=== PATIENT | male | born 1955 | race Caucasian/White ===

== ENCOUNTER 2017-08-16 09:03 | Inpatient (IN) | payer BC ==
[2017-08-16 10:26] VITALS: BMI 28.7
--- NOTE | 2017-08-16 12:35 | HP ---
CIWA Score - CIWA Score Nausea/Vomitin Muscle Tremors: 3 Anxiety: 3 Agitation: 3 Paroxysmal Sweats: 2 Orientation: 0-Oriented Tacttile Disturbances: 2-Mild Itch/Numbness/Burn Auditory Disturbances: 2-Mild Harshness/Frighten Visual Disturbances: 1-Very Mild Sensitivity Headache: 2-Mild CIWA-Ar Total Score: 21 Admission ROS BHS - HPI Chief Complaint: I NEED HELP TO STOP DRINKING ALCOHOL Allergies/Adverse Reactions: Allergies Allergy/AdvReac Type Severity Reaction Status Date / Time No Known Allergies Allergy Verified 08/16/17 10:33 History of Present Illness: THIS 62 YEARS OLD MALE WITH ALCOHOL DEPENDENCE,SEEKING DETOX,WITHDRAWAL SYMPTOM, SEEN IN ER AT [facility], LAST DETOX [facility] 07/16 LAST SEIZURE 08/12 SYNCOPE HYPERTENSION,TYPE 2 DM, INSULIN DEPENDENCE PARANOID SCHZIPHRENIA NO SIGNIFICANT PERIOD OF SOBRIETY Exam Limitations: No Limitations - Ebola screening Have you traveled outside of the country in the last 21 days: No (N) Have you had contact with anyone from an Ebola affected area: No Have you been sick,other than usual withdrawal symptoms: No Do you have a fever: No - Review of Systems Constitutional: Loss of Appetite, Malaise, Night Sweats, Changes in sleep, Weakness EENT: reports: Nose Congestion Respiratory: reports: No Symptoms reported Cardiac: reports: No Symptoms Reported GI: reports: Nausea, Vomiting, Abdominal cramping : reports: No Symptoms Reported Musculoskeletal: reports: Back Pain, Muscle Pain Integumentary: reports: Dryness Endocrine: reports: No Symptoms Reported Hematology: reports: No Symptoms Reported Psychiatric: reports: No Sypmtoms Reported, Judgement Intact, Mood/Affect Appropiate, Orientated x3, other (PARANOID SCHIZOPHRENIA) Patient History - Patient Medical History Hx Anemia: No Hx Asthma: No Hx Chronic Obstructive Pulmonary Disease (COPD): No Hx Cancer: No Hx Cardiac Disorders: No Hx Congestive Heart Failure: No Hx Hypertension: Yes (on meds.NON COMPLIANCE) Hx Seizures: No Hx Diabetes: Yes (ON INSULIN,NON COMPLIANCE) Hx Gastrointestinal Disorders: Yes (acid reflux) Hx Liver Disease: No Hx Genitourinary Disorders: No Hx Sexually Transmitted Disorders: No Hx Renal Disease (ESRD): No Hx Thyroid Disease: No Hx Human Immunodeficiency Virus (HIV): No (LAST 2016) Hx Hepatitis C: No Hx Depression: Yes Hx Suicide Attempt: Yes (Pt tried to drink cleaning solution in 08/12.) Hx Bipolar Disorder: No Hx Schizophrenia: Yes (NON COMPLIANCE) Other Medical History: NO SUICIDAL,NO HOMICIDAL - Patient Surgical History Past Surgical History: Yes Other Surgical History: L restorationism basal cell carcinoma in - PPD History Previous Implant?: Yes Documented Results: Negative w/o proof Implanted On Prior [facility] Admission?: No PPD to be Administered?: Yes - Smoking Cessation Smoking history: Current every day smoker Have you smoked in the past 12 months: Yes Aproximately how many cigarettes per day: 20 Hx Chewing Tobacco Use: No Initiated information on smoking cessation: Yes 'Breaking Loose' booklet given: 08/16/17 - Substance & Tx. History Hx Alcohol Use: Yes Hx Substance Use: No Substance Use Type: Alcohol Hx Substance Use Treatment: Yes ([facility] 07/16) - Substances Abused Alcohol Route: Oral Frequency: Daily Amount used: 1-2 pints vodka Age of first use: 19 Date of Last Use: 08/13/17 Family Disease History - Family Disease History Family Disease History: Other: Father (ALCOHOL,), Mother (ALCOHOL, ) Admission Physical Exam S - Vital Signs Vital Signs: Vital Signs - 24 hr 08/16/17 10:24 Temperature 98.0 F Pulse Rate 86 Respiratory 20 Rate Blood Pressure 161/79 - Physical General Appearance: Yes: Moderate Distress, Tremorous, Irritable, Sweating, Anxious, Other (SEBORRHEIC DERMATITIS OF FACE) HEENTM: Yes: Normal ENT Inspection, ESTRADA, Pharynx Normal Respiratory: Yes: Lungs Clear, Normal Breath Sounds, No Respiratory Distress Neck: Yes: Within Normal Limits, Supple, Trachea in good position Breast: Yes: Within Normal Limits Cardiology: Yes: Within Normal Limits, Regular Rhythm, Regular Rate, S1, S2 Abdominal: Yes: Within Normal Limits, Normal Bowel Sounds, Flat, Soft Genitourinary: Yes: Within Normal Limits Back: Yes: Muscle Spasm Musculoskeletal: Yes: Back pain, Muscle Pain Extremities: Yes: Tremors Neurological: Yes: fireperson II-XII NML intact, Fully Oriented, Alert, Motor Strength 5/5 Integumentary: Yes: Dry Lymphatic: Yes: Within Normal Limits - Diagnostic (1) Alcohol dependence with uncomplicated withdrawal Current Visit: Yes Status: Acute (2) Alcohol related seizure Current Visit: Yes Status: Acute (3) Syncope Current Visit: Yes Status: Acute (4) Insulin dependent diabetes mellitus Current Visit: Yes Status: Acute (5) Nicotine dependence Current Visit: Yes Status: Acute (6) Paranoid schizophrenia Current Visit: Yes Status: Acute (7) Essential hypertension Current Visit: Yes Status: Acute Cleared for Admission S - Detox or Rehab [facility] Level of Care: Medically Managed Detox Regimen/Protocol: Librium BHS Breath Alcohol Content Breath Alcohol Content: 0 Urine Drug Screen - Results Drug Screen Negative: No Urine Drug Screen Results: BZO-Benzodiazepines
[2017-08-16] MEDS ORDERED: LOPERAMIDE HCL 2 MG CAPSULE PO PRN (12:57)
[2017-08-16] MEDS ORDERED: IBUPROFEN 400 MG TABLET (FP) PO PRN (12:57)
[2017-08-16] MEDS ORDERED: guaiFENesin/D-METHORPHAN HB 10 ML UNIT-DOSE CUPS PO PRN (12:57)
[2017-08-16] MEDS ORDERED: MAGNESIUM HYDROX 2400MG/30ML ORAL SUSPENSION 30 ML CUP PO PRN (12:57)
[2017-08-16] MEDS ORDERED: hydrOXYzine PAMOATE 25 MG CAPSULE (FP) PO PRN (12:57)
[2017-08-16] MEDS ORDERED: MAG HYDROX/AL HYDROX/SIMETH 30 ML UNIT-DOSE CUP PO PRN (12:57)
[2017-08-16] MEDS ORDERED: ACETAMINOPHEN 325 MG TABLET (FP) PO PRN (12:57)
[2017-08-16] MEDS ORDERED: MAGNESIUM CITRATE 300 ML BOTTLE PO PRN (12:57)
[2017-08-16] MEDS ORDERED: MENTHOL/PHENOL 1 EACH UD MM PRN (12:57)
[2017-08-16] MEDS ORDERED: P-EPHED 60MG/TRIPROLIDI 2.5MG TABLET PO PRN (12:57)
[2017-08-16] MEDS ORDERED: chlordiazePOXIDE HCL 25 MG CAPSULE PO PRN (12:57)
[2017-08-16] MEDS ORDERED: chlordiazePOXIDE HCL 25 MG CAPSULE PO ONE (14:05)
[2017-08-16] MEDS ORDERED: INSULIN (NOVOLOG) ASPART 100 UNITS/ML 10ML VIAL SQ ONE (14:15)
[2017-08-16] MEDS: NICOTINE 21 MG/24 HOURS TOPICAL PATCH TD SCH ×2 (15:11→15:35)
[2017-08-16] MEDS: LISINOPRIL 5 MG TABLET (FP) PO SCH (15:14)
[2017-08-16] MEDS: INSULIN (NOVOLOG) ASPART 100 UNITS/ML 10ML VIAL SQ SCH ×2 (15:30→17:53)
[2017-08-16] MEDS: NICOTINE POLACRILEX 2 MG GUM BUC PRN ×3 (15:32→22:24)
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
[2017-08-16] MEDS: chlordiazePOXIDE HCL 25 MG CAPSULE PO SCH ×2 (17:53→22:20)
[2017-08-16 21:10] LABS: URINE APPEARANCE CLEAR; URINE BILIRUBIN NEGATIVE (NEGATIVE); URINE BLOOD NEGATIVE (NEGATIVE); URINE COLOR AMBER; URINE GLUCOSE (UA) 3+ (NEGATIVE); URINE KETONE 2+ (NEGATIVE); URINE LEUK ESTERASE NEGATIVE (NEGATIVE); URINE NITRITE NEGATIVE (NEGATIVE)
[2017-08-16 21:12] LABS: URINE PROTEIN 3+ (NEGATIVE)
[2017-08-16 21:17] LABS: URINE BACTERIA RARE /hpf (NONE SEEN); URINE MUCUS MODERATE
[2017-08-16] MEDS ORDERED: traZODone HCL 50 MG TABLET (FP) PO SCH (22:00)
[2017-08-16] MEDS: THIAMINE HCL 100 MG TABLET (FP) PO SCH (22:20)
[2017-08-16] MEDS: MELATONIN 5 MG TABLETS PO SCH (22:21)
[2017-08-16] MEDS: INSULIN DETEMIR 100 UNITS/ML MDV SQ SCH (22:21)
[2017-08-16] MEDS: QUEtiapine FUMARATE 50 MG TABLET PO SCH (22:21)
[2017-08-17] MEDS: chlordiazePOXIDE HCL 25 MG CAPSULE PO SCH ×4 (06:27→22:33)
[2017-08-17] MEDS: NICOTINE POLACRILEX 2 MG GUM BUC PRN ×5 (06:29→22:36)
[2017-08-17] MEDS: INSULIN (NOVOLOG) ASPART 100 UNITS/ML 10ML VIAL SQ SCH ×3 (08:05→17:22)
--- NOTE | 2017-08-17 08:23 | EKG ---
Test Reason : Blood Pressure : / mmHG Vent. Rate : 084 BPM Atrial Rate : 084 BPM P-R Int : 172 ms QRS Dur : 088 ms QT Int : 374 ms P-R-T Axes : 044 -03 005 degrees QTc Int : 441 ms NORMAL SINUS RHYTHM MINIMAL VOLTAGE CRITERIA FOR LVH, MAY BE NORMAL VARIANT INFERIOR INFARCT , AGE UNDETERMINED ABNORMAL ECG NO PREVIOUS ECGS AVAILABLE Confirmed by ARLINE HONG, KRYSTAL ([id number]) on 08/17/2017 8:22:51 AM Referred By: Confirmed By:KRYSTAL NUNN MD
[2017-08-17 10:12] LABS: HEMOGLOBIN 14.6 GM/dL (11.7-16.9); MCH 31.9 pg (25.7-33.7); MCHC 33.9 g/dl (32.0-35.9); MEAN CELL VOLUME 94.3 fl (80-96); MEAN PLT VOLUME 9.5 fl (7.5-11.1); PLATELET COUNT 125 K/MM3 (134-434); RBC 4.56 M/mm3 (4.00-5.60); RDW 14.4 % (11.9-15.9); WHITE BLOOD COUNT 6.1 K/mm3 (4.0-10.0)
[2017-08-17] MEDS: LISINOPRIL 5 MG TABLET (FP) PO SCH (10:23)
[2017-08-17] MEDS: FLUoxetine HCL 20 MG CAPSULE (FP) PO SCH (10:23)
[2017-08-17] MEDS: PRENATAL VITAMINS W/ FOLIC ACID TABLET (FP) PO SCH (10:23)
[2017-08-17] MEDS: NICOTINE 21 MG/24 HOURS TOPICAL PATCH TD SCH (10:25)
[2017-08-17 10:30] LABS: CHLORIDE 92 mmol/L (98-107); POTASSIUM 3.7 mmol/L (3.5-5.1); SODIUM 130 mmol/L (136-145)
[2017-08-17 10:40] LABS: ALBUMIN 3.8 g/dl (3.4-5.0); ALK PHOS 147 U/L (45-117); ANION GAP 16 (8-16); BILIRUBIN,TOTAL 1.7 mg/dL (0.2-1.0); BLOOD UREA NITROGEN 17 mg/dL (7-18); CALCIUM 8.6 mg/dL (8.5-10.1); CO2 22 mmol/L (21-32); SGOT/AST 54 U/L (15-37); SGPT/ALT 59 U/L (12-78)
[2017-08-17 11:01] LABS: GLUCOSE,RANDOM 337 mg/dL (74-106)
--- NOTE | 2017-08-17 11:10 | PN ---
[facility] CIWA - CIWA Score Nausea/Vomitin-No Nausea/No Vomiting Muscle Tremors: 4-Moderate,w/Arms Extend Anxiety: 4-Mod. Anxious/Guarded Agitation: 4-Moderately Restless Paroxysmal Sweats: 1-Minimal Palms Moist Orientation: 0-Oriented Tacttile Disturbances: 0-None Auditory Disturbances: 0-None Visual Disturbances: 0-None Headache: 0-None Present CIWA-Ar Total Score: 13 BHS Progress Note (SOAP) Subjective: ANXIETY,SWEATS,TREMORS,INTERMITTENT SLEEP Objective: 08/17/17 11:09 Vital Signs Temperature 97.6 F 08/17/17 09:47 Pulse Rate 89 08/17/17 09:47 Respiratory Rate 20 08/17/17 09:47 Blood Pressure 132/78 08/17/17 09:47 O2 Sat by Pulse Oximetry (%) Laboratory Last Values WBC 6.1 K/mm3 (4.0-10.0) 08/17/17 06:20 RBC 4.56 M/mm3 (4.00-5.60) 08/17/17 06:20 Hgb 14.6 GM/dL (11.7-16.9) 08/17/17 06:20 Hct 43.0 % (35.4-49) 08/17/17 06:20 MCV 94.3 fl (80-96) 08/17/17 06:20 MCH 31.9 pg (25.7-33.7) 08/17/17 06:20 MCHC 33.9 g/dl (32.0-35.9) 08/17/17 06:20 RDW 14.4 % (11.9-15.9) 08/17/17 06:20 Plt Count 125 K/MM3 (134-434) L 08/17/17 06:20 MPV 9.5 fl (7.5-11.1) 08/17/17 06:20 Sodium 130 mmol/L (136-145) L 08/17/17 06:20 Potassium 3.7 mmol/L (3.5-5.1) 08/17/17 06:20 Chloride 92 mmol/L (98-107) L 08/17/17 06:20 Carbon Dioxide 22 mmol/L (21-32) 08/17/17 06:20 Anion Gap 16 (8-16) 08/17/17 06:20 BUN 17 mg/dL (7-18) 08/17/17 06:20 Creatinine 1.0 mg/dL (0.7-1.3) 08/17/17 06:20 Creat Clearance w eGFR > 60 (>60) 08/17/17 06:20 POC Glucometer 288 UNITS (80-120) 08/17/17 06:28 Random Glucose 337 mg/dL (74-106) H* 08/17/17 06:20 Calcium 8.6 mg/dL (8.5-10.1) 08/17/17 06:20 Total Bilirubin 1.7 mg/dL (0.2-1.0) H 08/17/17 06:20 AST 54 U/L (15-37) H 08/17/17 06:20 ALT 59 U/L (12-78) 08/17/17 06:20 Alkaline Phosphatase 147 U/L (45-117) H 08/17/17 06:20 Total Protein 8.0 g/dl (6.4-8.2) 08/17/17 06:20 Albumin 3.8 g/dl (3.4-5.0) 08/17/17 06:20 Urine Color [place] 08/16/17 20:00 Urine Appearance Clear 08/16/17 20:00 Urine pH 6.0 (5.0-8.0) 08/16/17 20:00 Ur Specific [place] 1.033 (1.001-1.035) 08/16/17 20:00 Urine Protein 3+ (NEGATIVE) H 08/16/17 20:00 Urine Glucose (UA) 3+ (NEGATIVE) H 08/16/17 20:00 Urine Ketones 2+ (NEGATIVE) H 08/16/17 20:00 Urine Blood Negative (NEGATIVE) 08/16/17 20:00 Urine Nitrite Negative (NEGATIVE) 08/16/17 20:00 Urine Bilirubin Negative (NEGATIVE) 08/16/17 20:00 Urine Urobilinogen 2.0 mg/dL (0.2-1.0) 08/16/17 20:00 Ur Leukocyte Esterase Negative (NEGATIVE) 08/16/17 20:00 Urine WBC (Auto) 1 /hpf (3-5) 08/16/17 20:00 Urine RBC (Auto) 6 /hpf (0-3) 08/16/17 20:00 Urine Bacteria Rare /hpf (NONE SEEN) 08/16/17 20:00 Urine Mucus Moderate 08/16/17 20:00 Assessment: 08/17/17 11:09 WITHDRAWAL SX Plan: CONTINUE DETOX
[2017-08-17] MEDS: QUEtiapine FUMARATE 50 MG TABLET PO SCH (22:33)
[2017-08-17] MEDS: MELATONIN 5 MG TABLETS PO SCH (22:33)
[2017-08-17] MEDS: THIAMINE HCL 100 MG TABLET (FP) PO SCH (22:33)
[2017-08-17] MEDS: INSULIN DETEMIR 100 UNITS/ML MDV SQ SCH (22:35)
[2017-08-18] MEDS: chlordiazePOXIDE HCL 25 MG CAPSULE PO SCH ×2 (05:22→10:16)
[2017-08-18] MEDS: NICOTINE POLACRILEX 2 MG GUM BUC PRN ×5 (05:28→20:54)
[2017-08-18] MEDS: INSULIN (NOVOLOG) ASPART 100 UNITS/ML 10ML VIAL SQ SCH ×3 (07:10→18:21)
[2017-08-18] MEDS: LISINOPRIL 5 MG TABLET (FP) PO SCH (10:15)
[2017-08-18] MEDS: PRENATAL VITAMINS W/ FOLIC ACID TABLET (FP) PO SCH (10:15)
[2017-08-18] MEDS: FLUoxetine HCL 20 MG CAPSULE (FP) PO SCH (10:16)
[2017-08-18] MEDS: NICOTINE 21 MG/24 HOURS TOPICAL PATCH TD SCH (10:16)
--- NOTE | 2017-08-18 12:26 | PN ---
[facility] CIWA - CIWA Score Nausea/Vomitin-No Nausea/No Vomiting Muscle Tremors: 3 Anxiety: 5 Agitation: 4-Moderately Restless Paroxysmal Sweats: 1-Minimal Palms Moist Orientation: 0-Oriented Tacttile Disturbances: 3-Moderate Itch/Numb/Burn Auditory Disturbances: 0-None Visual Disturbances: 0-None Headache: 0-None Present CIWA-Ar Total Score: 16 S Progress Note (SOAP) Subjective: ANXIETY,IRRITABILITY,SWEATS. PT C/O BEING DEPRESSED DURING ROUNDS TODAY. PT WAS SEEN BY PSYCH AND MEDS STARTED. BUT WILL REFER FOR RE-EVALUATION TODAY. Objective: 08/18/17 12:23 Vital Signs Temperature 97.3 F L 08/18/17 10:31 Pulse Rate 70 08/18/17 10:31 Respiratory Rate 18 08/18/17 10:31 Blood Pressure 121/73 08/18/17 10:31 O2 Sat by Pulse Oximetry (%) Laboratory Last Values WBC 6.1 K/mm3 (4.0-10.0) 08/17/17 06:20 RBC 4.56 M/mm3 (4.00-5.60) 08/17/17 06:20 Hgb 14.6 GM/dL (11.7-16.9) 08/17/17 06:20 Hct 43.0 % (35.4-49) 08/17/17 06:20 MCV 94.3 fl (80-96) 08/17/17 06:20 MCH 31.9 pg (25.7-33.7) 08/17/17 06:20 MCHC 33.9 g/dl (32.0-35.9) 08/17/17 06:20 RDW 14.4 % (11.9-15.9) 08/17/17 06:20 Plt Count 125 K/MM3 (134-434) L 08/17/17 06:20 MPV 9.5 fl (7.5-11.1) 08/17/17 06:20 Sodium 130 mmol/L (136-145) L 08/17/17 06:20 Potassium 3.7 mmol/L (3.5-5.1) 08/17/17 06:20 Chloride 92 mmol/L (98-107) L 08/17/17 06:20 Carbon Dioxide 22 mmol/L (21-32) 08/17/17 06:20 Anion Gap 16 (8-16) 08/17/17 06:20 BUN 17 mg/dL (7-18) 08/17/17 06:20 Creatinine 1.0 mg/dL (0.7-1.3) 08/17/17 06:20 Creat Clearance w eGFR > 60 (>60) 08/17/17 06:20 POC Glucometer 288 UNITS (80-120) 08/18/17 11:13 Random Glucose 337 mg/dL (74-106) H* 08/17/17 06:20 Calcium 8.6 mg/dL (8.5-10.1) 08/17/17 06:20 Total Bilirubin 1.7 mg/dL (0.2-1.0) H 08/17/17 06:20 AST 54 U/L (15-37) H 08/17/17 06:20 ALT 59 U/L (12-78) 08/17/17 06:20 Alkaline Phosphatase 147 U/L (45-117) H 08/17/17 06:20 Total Protein 8.0 g/dl (6.4-8.2) 08/17/17 06:20 Albumin 3.8 g/dl (3.4-5.0) 08/17/17 06:20 Urine Color [place] 08/16/17 20:00 Urine Appearance Clear 08/16/17 20:00 Urine pH 6.0 (5.0-8.0) 08/16/17 20:00 Ur Specific [place] 1.033 (1.001-1.035) 08/16/17 20:00 Urine Protein 3+ (NEGATIVE) H 08/16/17 20:00 Urine Glucose (UA) 3+ (NEGATIVE) H 08/16/17 20:00 Urine Ketones 2+ (NEGATIVE) H 08/16/17 20:00 Urine Blood Negative (NEGATIVE) 08/16/17 20:00 Urine Nitrite Negative (NEGATIVE) 08/16/17 20:00 Urine Bilirubin Negative (NEGATIVE) 08/16/17 20:00 Urine Urobilinogen 2.0 mg/dL (0.2-1.0) 08/16/17 20:00 Ur Leukocyte Esterase Negative (NEGATIVE) 08/16/17 20:00 Urine WBC (Auto) 1 /hpf (3-5) 08/16/17 20:00 Urine RBC (Auto) 6 /hpf (0-3) 08/16/17 20:00 Urine Bacteria Rare /hpf (NONE SEEN) 08/16/17 20:00 Urine Mucus Moderate 08/16/17 20:00 RPR Titer Nonreactive (NONREACTIVE) 08/17/17 06:20 Assessment: 08/18/17 12:26 WITHDRAWAL SX Plan: CONTINUE DETOX PSYCH RE-EVALUATION TODAY.
--- NOTE | 2017-08-18 12:31 | PN ---
Psychiatric Progress Note Vital Signs: Vital Signs Period Temp Pulse Resp BP Sys/Coreas Pulse Ox Last 24 Hr 96.8 F-98.5 F 51-89 18-20 112-140/58-76 Date of Session: 08/18/17 Chief Complaint:: " I feel depressed." Current Medications: Active Medications Generic Name Dose Route Start Last Admin Trade Name Freq PRN Reason Stop Dose Admin Acetaminophen 650 mg 08/16/17 12:57 Tylenol - PO Q4H PRN FEVER Al Hydroxide/Mg Hydroxide 30 ml 08/16/17 12:57 Mylanta Oral Suspension - PO Q6H PRN DYSPEPSIA Chlordiazepoxide HCl 15 mg 08/18/17 17:00 Librium - PO 08/19/17 11:01 [id number] FRANK Chlordiazepoxide HCl 25 mg 08/16/17 12:57 08/18/17 12:07 Librium - PO 08/19/17 12:56 25 mg Q4H PRN Administration WITHDRAWAL(CONT SUBST) Chlordiazepoxide HCl 10 mg 08/19/17 17:00 Librium - PO 08/20/17 11:01 [id number] FRANK Eucalyptus/Menthol/Phenol/Sorbitol 1 each 08/16/17 12:57 Cepastat Lozenge - MM Q4H PRN SORE THROAT Fluoxetine HCl 20 mg 08/17/17 10:00 08/18/17 10:16 Prozac - PO 20 mg DAILY FRANK Administration Guaifenesin 10 ml 08/16/17 12:57 Robitussin Dm - PO Q6H PRN COUGH Hydroxyzine Pamoate 25 mg 08/16/17 12:57 Vistaril - PO Q4H PRN AGITATION Ibuprofen 400 mg 08/16/17 12:57 Motrin - PO Q6H PRN PAIN LEVEL 4-6 Insulin Aspart 5 units 08/16/17 14:20 08/18/17 11:16 Novolog Vial SQ 5 units TIDAC FRANK Administration Insulin Detemir 15 units 08/16/17 22:00 08/17/17 22:35 Levemir Vial SQ 15 units HS FRANK Administration Lisinopril 5 mg 08/16/17 14:15 08/18/17 10:15 Prinivil PO 5 mg DAILY FRANK Administration Loperamide HCl 4 mg 08/16/17 12:57 Imodium - PO Q6H PRN DIARRHEA Magnesium Citrate 300 ml 08/16/17 12:57 Citroma - PO Q48H PRN CONSTIPATION Magnesium Hydroxide 30 ml 08/16/17 12:57 Milk Of Magnesia - PO DAILY PRN CONSTIPATION Melatonin 5 mg 08/16/17 22:00 08/17/17 22:33 Melatonin PO 5 mg HS FRANK Administration Nicotine 21 mg 08/16/17 14:10 08/18/17 10:16 Nicoderm Patch - TD 21 mg DAILY FRANK Administration Nicotine Polacrilex 2 mg 08/16/17 12:57 08/18/17 10:16 Nicorette Gum - BUC 2 mg Q2H PRN Administration NICOTINE REPLACEMENT RX Multivit/Folic Acid/Iron 1 tab 08/17/17 10:00 08/18/17 10:15 Vitamins ([facility]) - PO 1 tab DAILY FRANK Administration Pseudoephedrine/Triprolidine 1 combo 08/16/17 12:57 Actifed - PO TID PRN NASAL CONGESTION Quetiapine Fumarate 50 mg 08/16/17 22:00 08/17/17 22:33 Seroquel - PO 50 mg HS FRANK Administration Thiamine HCl 100 mg 08/16/17 22:00 08/17/17 22:33 Vitamin B1 - PO 100 mg HS FRANK Administration Psychiatric Treatment Plan - Problem List (1) Paranoid schizophrenia Current Visit: Yes (2) Alcohol dependence with uncomplicated withdrawal Current Visit: Yes (3) Nicotine dependence Current Visit: Yes (4) Depressive disorder Current Visit: Yes (5) Insomnia Current Visit: Yes
[2017-08-18] MEDS ORDERED: INSULIN (NOVOLOG) ASPART 100 UNITS/ML 10ML VIAL ONE ×2 (16:54→17:39)
[2017-08-18] MEDS: chlordiazePOXIDE 5 MG CAPSULE PO SCH ×2 (17:35→22:24)
[2017-08-18] MEDS: INSULIN SLIDING SCALE (NOVOLOG) 1 VIAL SQ SCH (17:41)
[2017-08-18] MEDS: QUEtiapine FUMARATE 50 MG TABLET PO SCH (22:24)
[2017-08-18] MEDS: THIAMINE HCL 100 MG TABLET (FP) PO SCH (22:24)
[2017-08-18] MEDS: INSULIN DETEMIR 100 UNITS/ML MDV SQ SCH (22:25)
[2017-08-18] MEDS: MELATONIN 5 MG TABLETS PO SCH (22:26)
[2017-08-19] MEDS: NICOTINE POLACRILEX 2 MG GUM BUC PRN ×4 (05:51→22:44)
[2017-08-19] MEDS: chlordiazePOXIDE 5 MG CAPSULE PO SCH ×2 (05:51→10:11)
[2017-08-19] MEDS ORDERED: INSULIN (NOVOLOG) ASPART 100 UNITS/ML 10ML VIAL ONE ×3 (07:45→16:53)
[2017-08-19] MEDS: INSULIN SLIDING SCALE (NOVOLOG) 1 VIAL SQ SCH ×3 (07:54→17:22)
[2017-08-19] MEDS: FLUoxetine HCL 20 MG CAPSULE (FP) PO SCH (10:10)
[2017-08-19] MEDS: NICOTINE 21 MG/24 HOURS TOPICAL PATCH TD SCH (10:10)
[2017-08-19] MEDS: PRENATAL VITAMINS W/ FOLIC ACID TABLET (FP) PO SCH (10:10)
[2017-08-19] MEDS: LISINOPRIL 5 MG TABLET (FP) PO SCH (10:10)
--- NOTE | 2017-08-19 15:50 | PN ---
BHS Progress Note (SOAP) Subjective: Fatigue, Anxious, Tremors. Objective: PATIENT A & O X 3, OBSERVED AMBULATING ON UNIT. NO ACUTE DISTRESS. 08/19/17 15:49 Vital Signs Temperature 97.3 F L 08/19/17 13:40 Pulse Rate 74 08/19/17 13:40 Respiratory Rate 18 08/19/17 13:40 Blood Pressure 109/65 08/19/17 13:40 O2 Sat by Pulse Oximetry (%) Laboratory Tests 08/16/17 08/16/17 08/16/17 11:07 15:26 16:39 WBC RBC Hgb Hct MCV MCH MCHC RDW Plt Count MPV Sodium Potassium Chloride Carbon Dioxide Anion Gap BUN Creatinine Creat Clearance w eGFR POC Glucometer 321 252 242 Random Glucose Calcium Total Bilirubin AST ALT Alkaline Phosphatase Total Protein Albumin Urine Color Urine Appearance Urine pH Ur Specific [place] Urine Protein Urine Glucose (UA) Urine Ketones Urine Blood Urine Nitrite Urine Bilirubin Urine Urobilinogen Ur Leukocyte Esterase Urine WBC (Auto) Urine RBC (Auto) Urine Bacteria Urine Mucus RPR Titer 08/16/17 08/16/17 08/17/17 20:00 21:42 06:20 WBC 6.1 RBC 4.56 Hgb 14.6 Hct 43.0 MCV 94.3 MCH 31.9 MCHC 33.9 RDW 14.4 Plt Count 125 L MPV 9.5 Sodium Potassium Chloride Carbon Dioxide Anion Gap BUN Creatinine Creat Clearance w eGFR POC Glucometer 309 Random Glucose Calcium Total Bilirubin AST ALT Alkaline Phosphatase Total Protein Albumin Urine Color [place] Urine Appearance Clear Urine pH 6.0 Ur Specific [place] 1.033 Urine Protein 3+ H Urine Glucose (UA) 3+ H Urine Ketones 2+ H Urine Blood Negative Urine Nitrite Negative Urine Bilirubin Negative Urine Urobilinogen 2.0 Ur Leukocyte Esterase Negative Urine WBC (Auto) 1 Urine RBC (Auto) 6 Urine Bacteria Rare Urine Mucus Moderate RPR Titer 08/17/17 08/17/17 08/17/17 06:20 06:20 06:28 WBC RBC Hgb Hct MCV MCH MCHC RDW Plt Count MPV Sodium 130 L Potassium 3.7 Chloride 92 L Carbon Dioxide 22 Anion Gap 16 BUN 17 Creatinine 1.0 Creat Clearance w eGFR > 60 POC Glucometer 288 Random Glucose 337 H* Calcium 8.6 Total Bilirubin 1.7 H AST 54 H ALT 59 Alkaline Phosphatase 147 H Total Protein 8.0 Albumin 3.8 Urine Color Urine Appearance Urine pH Ur Specific [place] Urine Protein Urine Glucose (UA) Urine Ketones Urine Blood Urine Nitrite Urine Bilirubin Urine Urobilinogen Ur Leukocyte Esterase Urine WBC (Auto) Urine RBC (Auto) Urine Bacteria Urine Mucus RPR Titer Nonreactive 08/17/17 08/17/17 08/17/17 11:05 16:24 21:27 WBC RBC Hgb Hct MCV MCH MCHC RDW Plt Count MPV Sodium Potassium Chloride Carbon Dioxide Anion Gap BUN Creatinine Creat Clearance w eGFR POC Glucometer 335 210 371 Random Glucose Calcium Total Bilirubin AST ALT Alkaline Phosphatase Total Protein Albumin Urine Color Urine Appearance Urine pH Ur Specific [place] Urine Protein Urine Glucose (UA) Urine Ketones Urine Blood Urine Nitrite Urine Bilirubin Urine Urobilinogen Ur Leukocyte Esterase Urine WBC (Auto) Urine RBC (Auto) Urine Bacteria Urine Mucus RPR Titer 08/18/17 08/18/17 08/18/17 05:23 11:13 15:56 WBC RBC Hgb Hct MCV MCH MCHC RDW Plt Count MPV Sodium Potassium Chloride Carbon Dioxide Anion Gap BUN Creatinine Creat Clearance w eGFR POC Glucometer 253 288 319 Random Glucose Calcium Total Bilirubin AST ALT Alkaline Phosphatase Total Protein Albumin Urine Color Urine Appearance Urine pH Ur Specific [place] Urine Protein Urine Glucose (UA) Urine Ketones Urine Blood Urine Nitrite Urine Bilirubin Urine Urobilinogen Ur Leukocyte Esterase Urine WBC (Auto) Urine RBC (Auto) Urine Bacteria Urine Mucus RPR Titer 08/18/17 08/19/17 08/19/17 20:37 05:50 11:34 WBC RBC Hgb Hct MCV MCH MCHC RDW Plt Count MPV Sodium Potassium Chloride Carbon Dioxide Anion Gap BUN Creatinine Creat Clearance w eGFR POC Glucometer 264 216 373 Random Glucose Calcium Total Bilirubin AST ALT Alkaline Phosphatase Total Protein Albumin Urine Color Urine Appearance Urine pH Ur Specific [place] Urine Protein Urine Glucose (UA) Urine Ketones Urine Blood Urine Nitrite Urine Bilirubin Urine Urobilinogen Ur Leukocyte Esterase Urine WBC (Auto) Urine RBC (Auto) Urine Bacteria Urine Mucus RPR Titer labs noted. Assessment: 08/19/17 15:49 WITHDRAWAL SYMPTOMS. Plan: CONTINUE DETOX.
[2017-08-19] MEDS: chlordiazePOXIDE HCL 10 MG CAPSULE PO SCH ×2 (17:21→22:43)
--- NOTE | 2017-08-19 18:35 | PN ---
[facility] Progress Note Note: Psychiatry Attending's note : Met twice with the patient in the course of the day. Doing significantly much better.Conversant.Pleasant on approach. Cognitively sound.Sleeps well and eats well.Improved personal hygiene. Patient denies hallucinations.Denies suicidal or homicidal ideation. Adherent to his regime of treatment.
[2017-08-19] MEDS: THIAMINE HCL 100 MG TABLET (FP) PO SCH (22:42)
[2017-08-19] MEDS: MELATONIN 5 MG TABLETS PO SCH (22:42)
[2017-08-19] MEDS: QUEtiapine FUMARATE 50 MG TABLET PO SCH (22:43)
[2017-08-19] MEDS: INSULIN DETEMIR 100 UNITS/ML MDV SQ SCH (22:43)
[2017-08-20] MEDS: chlordiazePOXIDE HCL 10 MG CAPSULE PO SCH (05:45)
[2017-08-20] MEDS: NICOTINE POLACRILEX 2 MG GUM BUC PRN ×2 (05:47→10:00)
[2017-08-20] MEDS ORDERED: INSULIN (NOVOLOG) ASPART 100 UNITS/ML 10ML VIAL ONE (07:34)
[2017-08-20] MEDS: INSULIN SLIDING SCALE (NOVOLOG) 1 VIAL SQ SCH (07:37)
[2017-08-20 09:30] VITALS: BP 163/85; PULSE 88; TEMP 97
--- NOTE | 2017-08-20 11:12 | DS ---
[facility] Detox Discharge Summary Admission Date: 08/16/17 Discharge Date: 08/20/17 - History Present History: Alcohol Dependence Pertinent Past History: DM, insulin dependent GERD HTN Alcohol related seizure disorder - Physical Exam Results Vital Signs: Vital Signs Temperature 97.0 F L 08/20/17 09:29 Pulse Rate 88 08/20/17 09:29 Respiratory Rate 18 08/20/17 09:29 Blood Pressure 163/85 08/20/17 09:29 O2 Sat by Pulse Oximetry (%) Pertinent Admission Physical Exam Findings: Withdrawal symptoms Laboratory Tests 08/16/17 08/16/17 08/16/17 11:07 15:26 16:39 WBC RBC Hgb Hct MCV MCH MCHC RDW Plt Count MPV Sodium Potassium Chloride Carbon Dioxide Anion Gap BUN Creatinine Creat Clearance w eGFR POC Glucometer 321 252 242 Random Glucose Calcium Total Bilirubin AST ALT Alkaline Phosphatase Total Protein Albumin Urine Color Urine Appearance Urine pH Ur Specific [place] Urine Protein Urine Glucose (UA) Urine Ketones Urine Blood Urine Nitrite Urine Bilirubin Urine Urobilinogen Ur Leukocyte Esterase Urine WBC (Auto) Urine RBC (Auto) Urine Bacteria Urine Mucus RPR Titer 08/16/17 08/16/17 08/17/17 20:00 21:42 06:20 WBC 6.1 RBC 4.56 Hgb 14.6 Hct 43.0 MCV 94.3 MCH 31.9 MCHC 33.9 RDW 14.4 Plt Count 125 L MPV 9.5 Sodium Potassium Chloride Carbon Dioxide Anion Gap BUN Creatinine Creat Clearance w eGFR POC Glucometer 309 Random Glucose Calcium Total Bilirubin AST ALT Alkaline Phosphatase Total Protein Albumin Urine Color [place] Urine Appearance Clear Urine pH 6.0 Ur Specific [place] 1.033 Urine Protein 3+ H Urine Glucose (UA) 3+ H Urine Ketones 2+ H Urine Blood Negative Urine Nitrite Negative Urine Bilirubin Negative Urine Urobilinogen 2.0 Ur Leukocyte Esterase Negative Urine WBC (Auto) 1 Urine RBC (Auto) 6 Urine Bacteria Rare Urine Mucus Moderate RPR Titer 08/17/17 08/17/17 08/17/17 06:20 06:20 06:28 WBC RBC Hgb Hct MCV MCH MCHC RDW Plt Count MPV Sodium 130 L Potassium 3.7 Chloride 92 L Carbon Dioxide 22 Anion Gap 16 BUN 17 Creatinine 1.0 Creat Clearance w eGFR > 60 POC Glucometer 288 Random Glucose 337 H* Calcium 8.6 Total Bilirubin 1.7 H AST 54 H ALT 59 Alkaline Phosphatase 147 H Total Protein 8.0 Albumin 3.8 Urine Color Urine Appearance Urine pH Ur Specific [place] Urine Protein Urine Glucose (UA) Urine Ketones Urine Blood Urine Nitrite Urine Bilirubin Urine Urobilinogen Ur Leukocyte Esterase Urine WBC (Auto) Urine RBC (Auto) Urine Bacteria Urine Mucus RPR Titer Nonreactive 08/17/17 08/17/17 08/17/17 11:05 16:24 21:27 WBC RBC Hgb Hct MCV MCH MCHC RDW Plt Count MPV Sodium Potassium Chloride Carbon Dioxide Anion Gap BUN Creatinine Creat Clearance w eGFR POC Glucometer 335 210 371 Random Glucose Calcium Total Bilirubin AST ALT Alkaline Phosphatase Total Protein Albumin Urine Color Urine Appearance Urine pH Ur Specific [place] Urine Protein Urine Glucose (UA) Urine Ketones Urine Blood Urine Nitrite Urine Bilirubin Urine Urobilinogen Ur Leukocyte Esterase Urine WBC (Auto) Urine RBC (Auto) Urine Bacteria Urine Mucus RPR Titer 08/18/17 08/18/17 08/18/17 05:23 11:13 15:56 WBC RBC Hgb Hct MCV MCH MCHC RDW Plt Count MPV Sodium Potassium Chloride Carbon Dioxide Anion Gap BUN Creatinine Creat Clearance w eGFR POC Glucometer 253 288 319 Random Glucose Calcium Total Bilirubin AST ALT Alkaline Phosphatase Total Protein Albumin Urine Color Urine Appearance Urine pH Ur Specific [place] Urine Protein Urine Glucose (UA) Urine Ketones Urine Blood Urine Nitrite Urine Bilirubin Urine Urobilinogen Ur Leukocyte Esterase Urine WBC (Auto) Urine RBC (Auto) Urine Bacteria Urine Mucus RPR Titer 08/18/17 08/19/17 08/19/17 20:37 05:50 11:34 WBC RBC Hgb Hct MCV MCH MCHC RDW Plt Count MPV Sodium Potassium Chloride Carbon Dioxide Anion Gap BUN Creatinine Creat Clearance w eGFR POC Glucometer 264 216 373 Random Glucose Calcium Total Bilirubin AST ALT Alkaline Phosphatase Total Protein Albumin Urine Color Urine Appearance Urine pH Ur Specific [place] Urine Protein Urine Glucose (UA) Urine Ketones Urine Blood Urine Nitrite Urine Bilirubin Urine Urobilinogen Ur Leukocyte Esterase Urine WBC (Auto) Urine RBC (Auto) Urine Bacteria Urine Mucus RPR Titer 08/19/17 08/19/17 08/20/17 16:26 20:32 05:44 WBC RBC Hgb Hct MCV MCH MCHC RDW Plt Count MPV Sodium Potassium Chloride Carbon Dioxide Anion Gap BUN Creatinine Creat Clearance w eGFR POC Glucometer 243 324 258 Random Glucose Calcium Total Bilirubin AST ALT Alkaline Phosphatase Total Protein Albumin Urine Color Urine Appearance Urine pH Ur Specific [place] Urine Protein Urine Glucose (UA) Urine Ketones Urine Blood Urine Nitrite Urine Bilirubin Urine Urobilinogen Ur Leukocyte Esterase Urine WBC (Auto) Urine RBC (Auto) Urine Bacteria Urine Mucus RPR Titer Labs reviewed - Treatment Hospital Course: Detox Protocol Followed, Detoxed Safely, Responded well, Discharged Condition Good - Medication Discharge Medications: Ambulatory Orders Fluoxetine HCl [Prozac -] 40 mg PO DAILY 08/16/17 Insulin (Novolog) [Novolog Flexpen] 5 units SQ AC 08/16/17 Insulin Glargine,Hum.rec.anlog [Lantus Solostar PEN (NF)] 15 units SQ HS Lisinopril 0 mg PO DAILY 08/16/17 Quetiapine Fumarate [Seroquel -] 100 mg PO HS 08/16/17 Trazodone HCl 100 mg PO HS 08/16/17 - Diagnosis (1) GERD (gastroesophageal reflux disease) Status: Chronic (2) Alcohol dependence with uncomplicated withdrawal Status: Acute (3) Depressive disorder Status: Chronic (4) Nicotine dependence Status: Chronic Qualifiers: Nicotine product type: cigarettes Substance use status: uncomplicated Qualified Code(s): F17.210 - Nicotine dependence, cigarettes, uncomplicated (5) Paranoid schizophrenia Status: Chronic (6) Syncope Status: Chronic (7) Essential hypertension Status: Chronic (8) Insulin dependent diabetes mellitus Status: Chronic (9) Alcohol related seizure Status: Chronic - AMA Did Patient Leave Against Medical Advice: No (Follow up with your PCP within 1- 2 weeks)
== END 2017-08-20 10:02 | disposition home or self-care (01) | DRG 775 ==
LOC: YASAS 09:03 → Y3N 13:50
PROVIDERS: ADMIT Internal Medicine; ATTEND Internal Medicine
PROC: HZ2ZZZZ Detoxification Services for Substance Abuse Treatment (ICD-10-PCS; principal; 2017-08-16)
DX: F10.230 Alcohol dependence with withdrawal, uncomplicated (principal); F17.210 Nicotine dependence, cigarettes, uncomplicated; F20.0 Paranoid schizophrenia; F32.9 Major depressive disorder, single episode, unspecified; G40.509 Epileptic seizures related to external causes, not intractable, without status epilepticus; E11.9 Type 2 diabetes mellitus without complications; Z79.4 Long term (current) use of insulin; I10 Essential (primary) hypertension; K21.9 Gastro-esophageal reflux disease without esophagitis; Z85.828 Personal history of other malignant neoplasm of skin; Z91.5 Personal history of self-harm
CPT/HCPCS: 36415; 80053; 81003; 81015; 82962; 85027; 86593; 93005; 93010